=== PATIENT | male | born 1945 | race Caucasian/White ===

== ENCOUNTER 2017-11-10 15:36 | Observation (INO) ==
[2017-11-10] MEDS ORDERED: SALINE FLUSH 10ml SYRINGE IVF PRN (16:19)
--- NOTE | 2017-11-10 16:28 | Emergency Department Report ---
Fever HPI - General Chief Complaint: Medical Emergency Stated Complaint: influenza B pos Time Seen by Provider: 11/10/17 15:42 Source: patient, family Mode of arrival: ambulatory Limitations: no limitations - History of Present Illness HPI Narrative: Pt presents after being diagnosed with Influenza B 2 days ago with progressive weakness and uncontrolled nausea/vomiting. PT began having symptoms 6 days ago. Developed fever 2 days after and then vomiting and weakness 2 days after that. Pt has been seeing his PCP who has prescribed Zofran without relief. states pt has not been keeping anything down and she is now having to assist pt to the BR 2/2 increased weakness. Pt normally ambulates on his own without difficulty. He has had a productive cough. MD complaint: fever, weakness Onset (ago): day(s) Associated symptoms: cough, nausea, vomiting Relieving factors: nothing Treatments prior to arrival fever: other (zofran) - Related Data Home Medications Medication Instructions Recorded Confirmed Acetaminophen [Tylenol] 1,000 mg PO Q5H PRN 11/10/17 11/10/17 Aspirin [Adult Aspirin Regimen] 81 mg PO BID 11/10/17 11/10/17 Docusate Sodium [Colace] 100 mg PO BID 11/10/17 11/10/17 Doxazosin [Cardura] 4 mg PO HS 11/10/17 11/10/17 Finasteride [Proscar] 5 mg PO HS 11/10/17 11/10/17 Glucosamine/MSM/Chondroitin A 1 each PO BID 11/10/17 11/10/17 [Glucosamine Chondroit MSM Tab] Omega3/Dha/Epa/Fish Oil/Vit D3 1 each PO HS 11/10/17 11/10/17 [Fish Oil-Vit D3 Softgel] Ondansetron HCl [Zofran] 8 mg PO Q12HR PRN 11/10/17 11/10/17 Allergies Allergy/AdvReac Type Severity Reaction Status Date / Time morphine AdvReac Unknown JERKING Verified 11/10/17 16:27 MOVEMENTS Review of Systems All systems: reviewed and negative except as stated Constitutional: Reports: as per HPI Respiratory: Reports: as per HPI Gastrointestinal: Reports: as per HPI Musculoskeletal: Reports: as per HPI Endocrine: Reports: as per HPI PFSH Patient Stated Medical History Dysphagia Yes: OCCASIONALLY Other HEENT Yes: WEARS GLASSES Hx Benign Prostatic Yes Hyperplasia Physical Exam - Limitations Limitations: no limitations - General General appearance: alert, in no apparent distress - Normal Exams: Head:: Normocephalic without trauma Eyes:: Pupils are PERRLA w/ EOMI Neck:: Full range of motion, without adenopathy Chest/Respirations:: Clear all jasmine, with good airflow, and symmetry bilaterally Cardiovascular:: Regular rate and rhythm, without murmur or gallop, Pulses 2+ all extremities, capillary refill, <2 seconds all extremities Abdomen:: Bowel sounds positive, soft, non-tender, non-distended Musculoskeletal:: No tenderness, or deformity noted, good range of motion, all extremities Integumentary:: No rashes Neurological:: Patient is alert, and oriented, cranial nerves, motor/sensory/ cerebellar, exams w/o gross deficits, to observation Psychiatric:: Patient exhibits, appropriate attention, emotion and affect Course Vital Signs Temperature 99.1 F 11/10/17 15:45 Pulse Rate 57 L 11/10/17 15:45 Respiratory Rate 20 11/10/17 15:45 Blood Pressure 145/77 H 11/10/17 15:45 Pulse Oximetry 97 11/10/17 15:45 Temperature 99.1 F 11/10/17 15:45 Pulse Rate 57 L 11/10/17 15:45 Respiratory Rate 20 11/10/17 15:45 Blood Pressure 145/77 H 11/10/17 15:45 Pulse Oximetry 97 11/10/17 15:45 Fever - MDM Narrative Medical decision making narrative: Labs and X Ray reveal a pleural effusion. Pt continues to c/o weakness. He has received a liter of NS and 4 mg of Zofran. Findings discussed with Dr Chávez , pt to be admitted observation. Findings and plan discussed with pt and family who voice understanding. - Differential Diagnosis Likely: fever of unknown origin, gastroenteritis, viral infection, sepsis, influenza - Lab Data Attestation: I reviewed the patient's lab results. Result diagrams: 11/10/17 16:19 11/10/17 16:19 Lab Results 11/10/17 11/10/17 Range/Units 16:19 16:19 WBC 4.1 L (4.5-11.0) T/MM3 RBC 4.91 (4.50-5.90) M/MM3 Hgb 14.1 (13.5-17.5) GM/DL Hct 41.4 (41-53) % MCV 84.3 (80-100) UM3 MCH 28.7 (26-34) UUG MCHC 34.1 (31-37) GM/DL RDW Std Deviation 39.4 (36.9-50.2) FL Plt Count 125 L (130-400) T/MM3 MPV 10.5 (9.4-12.4) UM3 Immature Gran % (Auto) 0.2 (0.0-0.5) % Neut % (Auto) 67.0 H (33-66) % Lymph % (Auto) 24.7 (23-45) % Dundy % (Auto) 8.1 (0-9.0) % Eos % (Auto) 0.0 (0-4) % Baso % (Auto) 0.0 (0-2) % Neut # (Auto) 2.7 (1.8-7.7) T/MM3 Lymph # (Auto) 1.0 (1-4.8) T/MM3 Dundy # (Auto) 0.3 (0-0.8) T/MM3 Eos # (Auto) 0.0 (0-0.5) T/MM3 Baso # (Auto) 0.0 (0-0.2) T/MM3 Abs Immat Gran (auto) 0.01 (0.00-0.03) T/MM3 Turbidity < 20 (0-20) Sodium 138 (134-144) MEQ/L Potassium 3.7 (3.6-5) MEQ/L Chloride 100 (98-107) MEQ/L Carbon Dioxide 27 (22-30) MEQ/L Anion Gap 11 (5-15) MEQ/L BUN 16.0 (9-20) MG/DL Creatinine 0.7 L (0.8-1.5) MG/DL GFR Calculation 111 BUN/Creatinine Ratio 23 (6-26) RATIO Glucose 111 H (75-110) MG/DL Calculated Osmolality 268 (261-280) MOSM/KG Calcium 8.5 (8.4-10.2) MG/DL Total Bilirubin 0.70 (0.20-1.30) MG/DL Icterus Index < 2 (0-7) AST 41 (17-59) U/L ALT 37 (21-72) U/L Alkaline Phosphatase 66 (38-126) U/L Total Protein 7.1 (6.3-8.2) G/DL Albumin 3.8 (3.5-5.0) G/DL Globulin 3.3 (2.4-3.6) G/DL Albumin/Globulin Ratio 1.2 (1.1-2.2) RATIO Specimen Hemolysis < 15 (0-25) - Radiology Data Attestation: I reviewed the patient's radiology results. (read per Dr Rose reveals pleural effusion) Disposition Clinical Impression: Influenza, Weakness Vomiting Qualifiers: Vomiting type: unspecified Vomiting Intractability: non-intractable Nausea presence: with nausea Qualified Code(s): R11.2 - Nausea with vomiting, unspecified Condition: Improved Prescriptions: No Action Omega3/Dha/Epa/Fish Oil/Vit D3 [Fish Oil-Vit D3 Softgel] 1 each PO HS Aspirin [Adult Aspirin Regimen] 81 mg PO BID Glucosamine/MSM/Chondroitin A [Glucosamine Chondroit MSM Tab] 1 each PO BID Docusate Sodium [Colace] 100 mg PO BID Acetaminophen [Tylenol] 1,000 mg PO Q5H PRN PRN Reason: Pain /Fever Finasteride [Proscar] 5 mg PO HS Doxazosin [Cardura] 4 mg PO HS Ondansetron HCl [Zofran] 8 mg PO Q12HR PRN PRN Reason: Nausea &/Or Vomiting Referrals: Preet Leonard MD [Family Provider] - Time of Disposition: 17:59 - Seen By: midlevel
[2017-11-10] MEDS: NS 1,000 ML IV SCH ×3 (16:33→19:58)
--- NOTE | 2017-11-10 18:43 | History & Physical Report ---
History of Present Illness Date: 11/10/17 Chief complaint: dizziness, lightheadedness, dyspnea, chest pain HPI: Mr Tobias is a pleasant 71-year-old gentleman who has been under the primary care of Dr. Leonard. Patient has been sick for approximately 8-9 days. He was evaluated on Thursday 11/[address] Leonard and found to have influenza B. He was not started on Tamiflu due to the length of his symptoms, however, was initiated on Zofran for his ongoing vomiting. Today, his weakness has progressed to the point that he is unable to even stand up without severe dizziness, lightheadedness and continued nausea and vomiting. Patient has not been able to eat any solid foods for the past 6 days. Is having generalized abdominal pain that radiates up into his chest. Reports his dyspnea is severe with even moving around in the bed. He is having to prop himself forward in a tripod-like position to become more comfortable. Today in the emergency room, laboratory studies were obtained. WBC was found to be slightly low at 4.1, hemoglobin stable 14.1, platelet count low at 125. Chemistry panel was unremarkable. Rest x-ray was obtained, however has not yet been read by radiolgist. Was given a 1 liter of IV fluids as well as Zofran, however, continues to be significantly weak and lightheaded. Due to the severity of his illness. The hospitalist services were contacted and accepted patient for outpatient observation for further evaluation and workup. reports that patient is rarely ill as he is a "stubborn swartz". He did see Dr Martinez in 2008 and at that time had a negative stress test. Patient indicates that he has difficulty with esophageal type discomfort and he had to have this dilated approximately 25 or 30 years ago. Since that time he has used omeprazole and that has helped him. However, at times he feels like he could get foods stuck in his esophagus. He also reports he is unable to drink any kind of carbonated beverages including pop or beer. He states that if he does drink either substance. He has severe chest pain that is unbearable. Review of Systems All systems PM: 10-point ROS was reviewed, no additional remarkable complaints except - Constitutional Constitutional: Present: anorexia, fatigue, fever(s), headache(s), lethargy, malaise, weakness - Cardiovascular Cardiovascular: Present: chest pain - Respiratory Respiratory: Present: cough, dyspnea - Gastrointestinal Gastrointestinal: Present: nausea, vomiting - Musculoskeletal Musculoskeletal: Present: myalgias - Neurological Neurological: Present: dizziness Past Medical History Esophageal stricture GERD BPH History of viral hepatitis-2003 Surgical History: Esophageal dilatation. Inguinal hernia repair as a child Family History Updates: Father at age 94, did have known heart disease and diabetes. Mother at age 89 from congestive heart failure. 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 Leonard Back Maker Dr. Martinez Medications Home Medications Medication Instructions Recorded Confirmed Type Acetaminophen [Tylenol] 1,000 mg PO Q5H PRN 11/10/17 11/10/17 History Aspirin [Adult Aspirin Regimen] 81 mg PO BID 11/10/17 11/10/17 History Docusate Sodium [Colace] 100 mg PO BID 11/10/17 11/10/17 History Doxazosin [Cardura] 4 mg PO HS 11/10/17 11/10/17 History Finasteride [Proscar] 5 mg PO HS 11/10/17 11/10/17 History Glucosamine/MSM/Chondroitin A 1 each PO BID 11/10/17 11/10/17 History [Glucosamine Chondroit MSM Tab] Omega3/Dha/Epa/Fish Oil/Vit D3 1 each PO HS 11/10/17 11/10/17 History [Fish Oil-Vit D3 Softgel] Ondansetron HCl [Zofran] 8 mg PO Q12HR PRN 11/10/17 11/10/17 History Allergies Allergy/AdvReac Type Severity Reaction Status Date / Time morphine AdvReac Unknown JERKING Verified 11/10/17 16:27 MOVEMENTS Exam Vital Signs: Temperature 98.6 F 11/10/17 18:34 Pulse Rate 60 11/10/17 18:34 Respiratory Rate 20 11/10/17 18:34 Blood Pressure 144/77 H 11/10/17 18:34 Pulse Oximetry 95 11/10/17 18:34 - Constitutional Present: mild distress, well nourished, well developed - Routine HEENT Exam Eye: Present: EOMI ENT: Present: mucous membranes dry, dentition normal - Routine Respiratory Exam Present: CTA bilaterally. Absent: wheezes - Routine Cardiovascular Exam Present: RRR, S1, S2. Absent: murmur - Routine Abdominal Exam Present: soft, normoactive bowel sounds, tenderness (diffuse), non distended - Routine Extremities Exam Present: full ROM, normal capillary refill - Routine Back/Spine/Pelvis Exam Back/Spine: Present: full ROM - Routine Skin Exam Present: intact, dry, warm - Routine Neurological Exam Present: alert, oriented X3, CN II-XII intact, moving all extremities - Routine Psychiatric Exam Present: normal affect, cooperative Results - Labs CBC & Chem 7: 11/10/17 16:19 11/10/17 16:19 Assessment and Plan (1) Influenza Current visit: Yes Status: Acute Assessment and Plan: Impression Influenza B Vomiting, concern for dehydration Weakness- Acute Dizziness- Acute Chest pain- Intermittent Dyspnea- Intermittent BPH GERD Plan Admit patient outpatient observation under the care of Dr. Chávez for further evaluation and treatment. Overall, patient does appear weak and ill. He has not been able to take in any oral food and minimal fluids for 6 days. We will continue with aggressive hydration overnight. Zofran and Reglan available as needed for nausea. Recommended only trying clear liquids initially until nausea and vomiting has improved. Will monitor patient on cardiac telemetry and obtain serial troponins as well as a EKG- Given reported chest pain with severe dyspnea. Did speak with Dr. Martinez whom will see patient in consultation. Concerned about the severity of his symptoms with onset of severe dyspnea and tripod positioning. We will obtain an echocardiogram. for further cardiac evaluation. Patient is more medically stable will consult PT and OT to evaluate his weakness SCDs to bilateral lower extremity for DVT prophylaxis Will discuss further orders and plan of care with attending, Dr Chávez At time of discharge medical care will return to patient's primary care provider , Dr Aisha Chávez Assessment as above with: Leukopenia/Thrombocytopenia DVT Prophylaxis: SCD's GI Prophylaxis: Protonix Resuscitation Status: Full Code - Time spent with patient Time with patient PN: 35 minutes - Physician Narrative Physician: Primitivo Chávez MD Narrative: Date: 11/10/17 Time: 2015 Have independently interviewed and examined pt. Chart reviewed. Case discussed with ED provider and my APPLICATION SUPPORT TECHNICIAN. Care plan developed with my supervision; agree with above. Patient presents to ED secondary to intractable nausea vomiting. Has been sick with flu like symptoms for the past 7-10 days. Symptoms progressively increasing. While he notes some SOA/cough/congestion, nausea and decreased appetite/oral intake much more problematic. Currently unable to keep liquids in. Any intake causes vomiting. Initially using NyQuil for symptom relief, but unable to keep this down. Not able to use oral Zofran. Urine output with significant decrease today. No diarrhea-had been having normal stools until 3 days ago. Much more weak and unsteady. Becomes very dizzy/lightheaded with positional changes. Fevers at home. Presents to ED for evaluation. Surprisingly , Renal status and electrolytes normal. Despite IVF given in ED, still symptomatic. Placed in OBS status for further evaluation and treatment. CV: regular Lungs: decreased breath sounds with upper airway noises AB: soft nt /nd BS very decreased MSE: awake alert appropriate Plan: OBS admission for hydration therapy. Control nausea. Protonix IV for GI protection. Will not initiate Tamiflu as too late in course of illness for treatment to be of benefit. Monitor lab. Hospital Course Summary Disclaimer: The visit summary below is not to be considered part of the above Progress Note.
[2017-11-10] MEDS ORDERED: NS 1,000 ML IV SCH (19:19)
[2017-11-10] MEDS ORDERED: FentaNYL 100 MCG/2 ML INJECTION IVP PRN (19:19)
[2017-11-10] MEDS ORDERED: ACETAMINOPHEN 500 MG TABLET PO PRN (19:19)
[2017-11-10] MEDS ORDERED: ONDANSETRON 4 MG/2 ML INJECTION IVP PRN (19:19)
[2017-11-10] MEDS: PANTOPRAZOLE 40 MG INJECTION IVP SCH (19:59)
[2017-11-10] MEDS: METOCLOPRAMIDE 10mg/2ml INJECTION IVP SCH (20:19)
[2017-11-10] MEDS: DOCUSATE SODIUM 100 MG CAPSULE PO SCH (20:24)
[2017-11-10] MEDS: ASPIRIN *EC* 81 MG TABLET PO SCH (20:24)
[2017-11-10] MEDS ORDERED: PROMETHAZINE/CODEINE ORAL LIQUID 5ml PO PRN (20:54)
[2017-11-10] MEDS ORDERED: DOXAZOSIN 4 MG TABLET PO SCH (21:00)
[2017-11-10] MEDS ORDERED: FINASTERIDE 5 MG TABLET PO SCH (21:00)
[2017-11-10] MEDS ORDERED: ALBUTEROL/IPRATROPIUM 2.5mg-0.5mg/3ml NEB AEROSOL SCH (21:00)
[2017-11-11] MEDS: METOCLOPRAMIDE 10mg/2ml INJECTION IVP SCH ×3 (02:35→15:36)
[2017-11-11] MEDS: NS 1,000 ML IV SCH ×2 (05:50→16:11)
[2017-11-11] MEDS: ALBUTEROL/IPRATROPIUM 2.5mg-0.5mg/3ml NEB AEROSOL SCH ×3 (06:39→15:41)
--- NOTE | 2017-11-11 08:10 | XRay Report ---
INDICATION: flu > 1 week PROCEDURE: CHEST 2-VIEWS UPRIGHT (PA & LAT) Encounter: Initial COMPARISON: December 17, 2008 FINDINGS: The lungs are clear without evidence of focal abnormal airspace opacity. Suggestion of trace pleural effusions on the lateral view. No pneumothorax. The heart size, mediastinal contours and pulmonary vascularity are within normal limits. There is no significant skeletal abnormality. IMPRESSION: Trace pleural effusions. .
[2017-11-11] MEDS: DOCUSATE SODIUM 100 MG CAPSULE PO SCH (09:44)
[2017-11-11] MEDS: PANTOPRAZOLE 40 MG INJECTION IVP SCH (09:44)
[2017-11-11] MEDS: ASPIRIN *EC* 81 MG TABLET PO SCH (09:44)
--- NOTE | 2017-11-11 12:18 | Progress Note ---
- Date 11/11/17 Subjective: F/U: Influenza, N/V, Dehydration Feeling much better this morning. Nausea decreased and appetite improving. Would like to try regular foods (broth not sounding good). Breathing well, but still with cough. Walked with PT this morning-not as dizzy and unsteady. Feels strength returning. Urine still dark, but urinating well. Had bowel movement. Objective Vital signs: Temperature 97.0 F 11/11/17 11:49 Pulse Rate 88 11/11/17 11:49 Respiratory Rate 13 11/11/17 11:49 Blood Pressure 138/67 11/11/17 11:49 Pulse Oximetry 94 11/11/17 11:49 Height/Weight/BMI: Height 1.85 m Weight 98.3 kg Body Mass Index 28.3 - Constitutional Present: well nourished, well developed, average body habitus, cooperative - Routine HEENT Exam Head: Present: normocephalic, atraumatic Eye: Present: EOMI, PERRL ENT: Present: mucous membranes moist - Routine Respiratory Exam Present: decreased breath sounds. Absent: rales, respiratory distress, rhonchi , stridor, wheezes, crackles - Routine Cardiovascular Exam Present: RRR, no murmur - Routine Abdominal Exam Present: soft, normoactive bowel sounds, non distended, non tender. Absent: guarding - Routine Extremities Exam Present: no edema, pulses intact. Absent: cyanosis, clubbing Comments: SCD in place - Routine Musculoskeletal Exam Musculoskeletal: Present: no clubbing or cyanosis, normal strength - Routine Skin Exam Present: intact, dry, warm - Routine Neurological Exam Present: alert, oriented X3, CN II-XII intact, moving all extremities, vision grossly intact, hearing grossly intact, normal speech. Absent: motor deficit, altered mental status - Routine Psychiatric Exam Present: normal affect, normal thought process, cooperative, good insight Results - Labs CBC & Chem 7: 11/11/17 02:59 11/11/17 02:59 Assessment and Plan (1) Influenza Current visit: Yes Status: Acute Assessment and Plan: Impression Influenza B Nausea/Vomiting - improved Weakness- Acute Dizziness- Acute Chest pain- Intermittent Dyspnea- Intermittent Leukopenia/Thrombocytopenia BPH GERD Plan Continue with IVF for hydration. Will advance diet to regular as patient feel like real food intake - advised caution with oral intake. Did well with therapy-encourage continued activities to help improve functional status. Will have Tesselan Perles available for cough - likely patient will have good success with the Ny-Quil he was using at home if can keep oral down. Troponin negative - no evidence of AMI. Dr Martinez to see patient. Continue with supportive care. Hope for discharge today IF patient can keep oral intake in well. 1700 Reassessed this evening Doing well. Tolerating oral intake-did take lunch easy (ate about 1/2 his portion) but kept in. Did feel if would have eaten more would developed nausea. Urine output improved - no having dark urine. Breathing well. Cough controlled. Maintaining saturation well on RA. Evaluated by Dr Martinez - ECHO normal. Recommends outpatient follow up in 3-4 weeks. Did discuss patient's reflux - encourage routine use of omeprazole for at least 1 month to control symptoms. May use Tums as needed. With clinic improvement, will discharge to home. [place] diet, plenty of fluids. Activities as tolerated. Omeprazole 20mg daily for 1 month, Tums prn. Tessalon Perle prn cough - my use OTC Ny-Quil or Robitussin DM or Mucinex DM to help cough. F/U with Dr Leonard in 1 week for medical reevaluation. Recommend rechecking CBC secondary to leukopenia/thrombocytopenia - likely secondary to influenza. F/U with Dr Martinez in 3-4 week. See orders for details. Case discussed with CM, Dr Martinez, patient and his . Time spent with patient care and discharge greater than 30 minutes. DVT Prophylaxis: SCD's Resuscitation Status: Full Code - Time spent with patient Time with patient PN: 25 minutes - Physician Narrative Physician: Primitivo Chávez MD Narrative: Date: 11/11/17 Time: 1215 Hospital Course Summary Disclaimer: The visit summary below is not to be considered part of the above Progress Note. Hospital Course: 11/10/17 Admission - OBS Admit patient outpatient observation under the care of Dr. Chávez for further evaluation and treatment. Overall, patient does appear weak and ill. He has not been able to take in any oral food and minimal fluids for 6 days. We will continue with aggressive hydration overnight. Zofran and Reglan available as needed for nausea. Recommended only trying clear liquids initially until nausea and vomiting has improved. Will monitor patient on cardiac telemetry and obtain serial troponins as well as a EKG- Given reported chest pain with severe dyspnea. Did speak with Dr. Martinez whom will see patient in consultation. Concerned about the severity of his symptoms with onset of severe dyspnea and tripod positioning. We will obtain an echocardiogram. for further cardiac evaluation. Patient is more medically stable will consult PT and OT to evaluate his weakness. SCDs to bilateral lower extremity for DVT prophylaxis. At time of discharge medical care will return to patient's primary care provider , Dr Leonard. 11/11/17 Continue with IVF for hydration. Will advance diet to regular as patient feel like real food intake - advised caution with oral intake. Did well with therapy-encourage continued activities to help improve functional status. Will have Tesselan Perles available for cough - likely patient will have good success with the Ny-Quil he was using at home if can keep oral down. Troponin negative - no evidence of AMI. Dr Martinez to see patient. Continue with supportive care. Hope for discharge today IF patient can keep oral intake in well. 1700 Reassessed this evening Doing well. Tolerating oral intake-did take lunch easy (ate about 1/2 his portion) but kept in. Did feel if would have eaten more would developed nausea. Urine output improved - no having dark urine. Breathing well. Cough controlled. Maintaining saturation well on RA. Evaluated by Dr Martinez - ECHO normal. Recommends outpatient follow up in 3-4 weeks. Did discuss patient's reflux - encourage routine use of omeprazole for at least 1 month to control symptoms. May use Tums as needed. With clinic improvement, will discharge to home. [place] diet, plenty of fluids. Activities as tolerated. Omeprazole 20mg daily for 1 month, Tums prn. Tessalon Perle prn cough - my use OTC Ny-Quil or Robitussin DM or Mucinex DM to help cough. F/U with Dr Leonard in 1 week for medical reevaluation. Recommend rechecking CBC secondary to leukopenia/thrombocytopenia - likely secondary to influenza. F/U with Dr Martinez in 3-4 week. See orders for details.
[2017-11-11 14:48] VITALS: BMI 28.5
[2017-11-11] MEDS ORDERED: BENZONATATE 200 MG CAPSULE PO PRN (15:29)
--- NOTE | 2017-11-11 17:21 | Discharge Summary ---
Discharge Information Date of admission: 11/10/17 17:52 Anticipated date of discharge: 11/11/17 Attending Physician: Primitivo Chávez MD Primary care physician: Preet Leonard MD Consults: Physician Consult: Cora Martinez Reason For Exam: chest pain, dyspnea - Discharge Diagnosis (1) Influenza Status: Acute Discharge diagnosis Influenza B Associated conditions and complications Nausea/Vomiting - improved Weakness - Acute, improved Dizziness - Acute, improved Chest pain - Intermittent - no evidence of AMI Dyspnea - Intermittent Leukopenia/Thrombocytopenia (POA) - suspect secondary to influenza BPH GERD - Procedures Procedures: ECHO - preliminary results normal; full report pending at discharge. - Laboratory Labs: Admit Lab 11/10/17 16:19 WBC 4.1 L Hgb 14.1 Hct 41.4 MCV 84.3 Plt Count 125 L Neut % (Auto) 67.0 H Lymph % (Auto) 24.7 [place] % (Auto) 8.1 Admit Lab 11/10/17 16:19 Sodium 138 Potassium 3.7 Chloride 100 Carbon Dioxide 27 Anion Gap 11 BUN 16.0 Creatinine 0.7 L GFR Calculation 111 BUN/Creatinine Ratio 23 Glucose 111 H Calculated Osmolality 268 Calcium 8.5 Total Bilirubin 0.70 AST 41 ALT 37 Alkaline Phosphatase 66 Total Protein 7.1 Albumin 3.8 Globulin 3.3 Albumin/Globulin Ratio 1.2 11/11/17 02:59 11/11/17 02:59 - Radiology Radiology: Date of Exam: 11/10/17 PROCEDURE: CHEST 2-VIEWS UPRIGHT (PA & LAT) FINDINGS: The lungs are clear without evidence of focal abnormal airspace opacity. Suggestion of trace pleural effusions on the lateral view. No pneumothorax. The heart size, mediastinal contours and pulmonary vascularity are within normal limits. There is no significant skeletal abnormality. IMPRESSION: Trace pleural effusions. History of Present Illness HPI: Mr Tobias is a pleasant 71-year-old gentleman who has been under the primary care of Dr. Leonard. Patient has been sick for approximately 8-9 days. He was evaluated on Thursday 11/[address] Leonard and found to have influenza B. He was not started on Tamiflu due to the length of his symptoms, however, was initiated on Zofran for his ongoing vomiting. Today, his weakness has progressed to the point that he is unable to even stand up without severe dizziness, lightheadedness and continued nausea and vomiting. Patient has not been able to eat any solid foods for the past 6 days. Is having generalized abdominal pain that radiates up into his chest. Reports his dyspnea is severe with even moving around in the bed. He is having to prop himself forward in a tripod-like position to become more comfortable. Today in the emergency room, laboratory studies were obtained. WBC was found to be slightly low at 4.1, hemoglobin stable 14.1, platelet count low at 125. Chemistry panel was unremarkable. Rest x-ray was obtained, however has not yet been read by radiolgist. Was given a 1 liter of IV fluids as well as Zofran, however, continues to be significantly weak and lightheaded. Due to the severity of his illness. The hospitalist services were contacted and accepted patient for outpatient observation for further evaluation and workup. reports that patient is rarely ill as he is a "stubborn swartz". He did see Dr Martinez in 2008 and at that time had a negative stress test. Patient indicates that he has difficulty with esophageal type discomfort and he had to have this dilated approximately 25 or 30 years ago. Since that time he has used omeprazole and that has helped him. However, at times he feels like he could get foods stuck in his esophagus. He also reports he is unable to drink any kind of carbonated beverages including pop or beer. He states that if he does drink either substance. He has severe chest pain that is unbearable. For complete details of the H&P refer to that document. Objective Vital signs: Temperature 97.0 F 11/11/17 11:49 Pulse Rate 88 11/11/17 11:49 Respiratory Rate 16 11/11/17 15:41 Blood Pressure 138/67 11/11/17 11:49 Pulse Oximetry 97 11/11/17 15:41 Height/Weight/BMI: Height 1.85 m Weight 98.3 kg Body Mass Index 28.5 Hospital Course This is a general summary of the patient's hospital course. For more details refer to the complete medical record. Hospital course: 11/10/17 Admission - OBS Admit patient outpatient observation under the care of Dr. Chávez for further evaluation and treatment. Overall, patient does appear weak and ill. He has not been able to take in any oral food and minimal fluids for 6 days. We will continue with aggressive hydration overnight. Zofran and Reglan available as needed for nausea. Recommended only trying clear liquids initially until nausea and vomiting has improved. Will monitor patient on cardiac telemetry and obtain serial troponins as well as a EKG- Given reported chest pain with severe dyspnea. Did speak with Dr. Martinez whom will see patient in consultation. Concerned about the severity of his symptoms with onset of severe dyspnea and tripod positioning. We will obtain an echocardiogram. for further cardiac evaluation. Patient is more medically stable will consult PT and OT to evaluate his weakness. SCDs to bilateral lower extremity for DVT prophylaxis. At time of discharge medical care will return to patient's primary care provider , Dr Leonard. 11/11/17 Continue with IVF for hydration. Will advance diet to regular as patient feel like real food intake - advised caution with oral intake. Did well with therapy-encourage continued activities to help improve functional status. Will have Tesselan Perles available for cough - likely patient will have good success with the Ny-Quil he was using at home if can keep oral down. Troponin negative - no evidence of AMI. Dr Martinez to see patient. Continue with supportive care. Hope for discharge today IF patient can keep oral intake in well. 1700 Reassessed this evening Doing well. Tolerating oral intake-did take lunch easy (ate about 1/2 his portion) but kept in. Did feel if would have eaten more would developed nausea. Urine output improved - not having dark urine. Breathing well. Cough controlled. Maintaining saturation well on RA. Evaluated by Dr Martinez - ECHO normal. Recommends outpatient follow up in 3-4 weeks. Did discuss patient's reflux - encourage routine use of omeprazole for at least 1 month to control symptoms. May use Tums as needed. With clinic improvement, will discharge to home. [place] diet, plenty of fluids. Activities as tolerated. Omeprazole 20mg daily for 1 month, Tums prn. Tessalon Perle prn cough - my use OTC Ny-Quil or Robitussin DM or Mucinex DM to help cough. F/U with Dr Leonard in 1 week for medical reevaluation. Recommend rechecking CBC secondary to leukopenia/thrombocytopenia - likely secondary to influenza. F/U with Dr Martinez in 3-4 week. See orders for details. Time spent with patient: discharge greater than 30 minutes Resuscitation Status: Full Code Discharge Plan - Discharge Disposition Discharge Date: 11/11/17 Disposition: 01 Discharged Home, Self-Care *Condition: Improved Reason For Visit (Visit label in EMR): Weakness, nausea / vomiting - Discharge Medications *Discharge Medications: New Benzonatate [Tessalon Perles] 200 mg PO TID PRN #20 cap PRN Reason: Cough Omeprazole 20 mg PO ACB #30 tab Continue Omega3/Dha/Epa/Fish Oil/Vit D3 [Fish Oil-Vit D3 Softgel] 1 each PO HS Aspirin [Adult Aspirin Regimen] 81 mg PO BID Glucosamine/MSM/Chondroitin A [Glucosamine Chondroit MSM Tab] 1 each PO BID Docusate Sodium [Colace] 100 mg PO BID Acetaminophen [Tylenol] 1,000 mg PO Q5H PRN PRN Reason: Pain /Fever Finasteride [Proscar] 5 mg PO HS Doxazosin [Cardura] 4 mg PO HS Ondansetron HCl [Zofran] 8 mg PO Q12HR PRN PRN Reason: Nausea &/Or Vomiting - Discharge Packet/Instructions *Diet: [place] diet, plenty of fluids. Advance diet as able *Activity: As tolerated *Pain Management/Treatment: Tylenol as needed for pain. *Wound Care: N/A Additional Instructions: Use omeprazole (Prilosec) 20mg daily before breakfast for 4 weeks to stop acid. May use Tums as needed. Okay to use OTC Ny-Quil or Robitussin DM or Mucinex DM to help decrease cough. *Expected Signs/Symptoms: Decreasing nausea and improvement of appetite. Improvement of breathing and decreasing cough. *Notify Physician if: Temp >100.4. Intractable nausea or vomiting. *During Business Hours Contact: Dr Leonard *After Business Hours Contact: [place] [facility] [place] Leonard or his covering provider contacted. *Pending Lab/Results: Follow up w/Provider (Full ECHO results pending. Preliminary report normal) - Referrals/Follow Up *Referrals/Follow Up: Cora Martinez MD [Physician] - (Cardiac follow up in 3-4 weeks. ) Preet Leonard MD [Family Provider] - 1 Week (Hospital follow up for N/V and influenza. GERD treatment increased to Routine Omeprazole. ) - Patient Handouts - Dismissal Complete Discharge Instructions are:: Complete Physician Narrative - Narrative Physician: Primitivo Chávez MD Attestation Narrative: Date: 11/11/17 Time: 1717 I have independently interviewed and examined patient prior to discharge. See my progress note from today for details. Medically stable for discharge to home.
[2017-11-11 17:29] VITALS: BP 139/69; PULSE 63; RESP 20; TEMP 98.5; O2SAT 96
--- NOTE | 2017-11-11 17:42 | Cardiology Consult Note ---
History of Present Illness Consult reason: chest pain History of present illness: Mr. Raji Pennington is a pleasant 71 year old male who presented to ER yesterday d/t dizziness, lightheadedness and chest discomfort. Pt has has ongoing illness since the Oct - he has been unable to eat or drink anything since then. Pt's PCP is Dr. Leonard and saw him on the due to continued dizziness and tested positive for influenza B. He was not given Tamiflu d/t length of symptoms, but was given Zofran for nausea/vomiting. Pt said in ER he had chest pain like heartburn - it was "tight" and thought it was gas pressure. It lasted 1-2 hours and was constant. Pt complained it was dull pain that was substernal and under bilateral breasts in location - pt made fist with left hand when showing location. Pt denied radiation and pain to jaw, neck or arm. Pt was unsure what made the pain go away in the ER - thought maybe the IV fluids. No positional changes made the chest pain worse. Pt had same pain 2 nights ago and took TUMS and the pain went away. Pt said eating or drinking made the pain worse. Pt had CHENTE in 2008 with me - had to stop due to being tired. Pt has also had cough since the onset of illness on the . The cough was worse when laying on back. The cough was better when laying in prone position or standing up. Pt has had esophageal problems in the past - had to get esophagus ballooned years ago. Pt has had heartburn issues in the past also - used to take Prilosec which helped but is no longer taking it since he said he heard that can cause liver problems. Pt currently denies chest pain, palpitations, dyspnea, nausea/vomiting. Pt continues to have cough with clear sputum production. Pt says he is feeling better this morning. Pt denies chest pain, palpitations, dyspnea, nausea, vomiting. Pt denies edema, PND, orthopnea. I was unable to reproduce chest pain upon palpation. Pt denies worsening of pain with cough. EKG showed SR. Echo and CXR were normal. Review of Systems All systems PM: 10-point ROS was reviewed, no additional remarkable complaints except PFSH Patient Stated Medical History Dysphagia Yes: OCCASIONALLY Other HEENT Yes: WEARS GLASSES Hx Benign Prostatic Yes Hyperplasia Surgical History: Esophageal dilatation. Inguinal hernia repair as a child - Social History Smoking status: Never smoker Substance use type: does not use Alcohol intake frequency: does not drink Current residence: Apartment/Private Home Medications Home Medications Medication Instructions Recorded Confirmed Type Acetaminophen [Tylenol] 1,000 mg PO Q5H PRN 11/10/17 11/12/17 History Aspirin [Adult Aspirin Regimen] 81 mg PO BID 11/10/17 11/12/17 History Docusate Sodium [Colace] 100 mg PO BID 11/10/17 11/12/17 History Doxazosin [Cardura] 4 mg PO HS 11/10/17 11/12/17 History Finasteride [Proscar] 5 mg PO HS 11/10/17 11/12/17 History Glucosamine/MSM/Chondroitin A 1 tab PO BID 11/10/17 11/12/17 History [Glucosamine Chondroit MSM Tab] Omega3/Dha/Epa/Fish Oil/Vit D3 1 each PO HS 11/10/17 11/12/17 History [Fish Oil-Vit D3 Softgel] Ondansetron HCl [Zofran] 8 mg PO Q12HR PRN 11/10/17 11/12/17 History Allergies Allergy/AdvReac Type Severity Reaction Status Date / Time benzonatate Allergy Rash Verified 11/12/17 15:59 morphine AdvReac Unknown JERKING Verified 11/12/17 15:37 MOVEMENTS Exam Vital signs: Temperature 98.5 F 11/11/17 17:27 Pulse Rate 63 11/11/17 17:27 Respiratory Rate 20 11/11/17 17:27 Blood Pressure 139/69 11/11/17 17:27 Pulse Oximetry 96 11/11/17 17:27 - Constitutional no acute distress, well developed, cooperative - Routine HEENT Exam Head: Present: normocephalic, atraumatic Eye: Present: EOMI, PERRL ENT: Present: mucous membranes moist Nose: moist mucous membranes - Routine Neck Exam Present: supple. Absent: carotid bruit - Routine Chest/Breast/Axilla Exam Chest wall: Absent: tenderness (unable to reproduce chest pain upon palpation) - Routine Respiratory Exam Present: CTA bilaterally, rhonchi (few scattered) - Routine Cardiovascular Exam Present: RRR, no murmur. Absent: gallop, rubs - Routine Abdominal Exam Present: soft, normoactive bowel sounds, non tender. Absent: organomegaly, mass - Routine Extremities Exam Present: no edema, pulses intact, normal capillary refill. Absent: cyanosis, clubbing - Routine Skin Exam Present: intact, dry. Absent: cyanosis, erythema - Routine Neurological Exam Present: alert, oriented X3, CN II-XII intact, moving all extremities, vision grossly intact, normal speech. Absent: motor deficit, hearing grossly intact ( [place]), facial asymmetry - Routine Psychiatric Exam Present: normal affect, cooperative Results 11/11/17 02:59 11/11/17 02:59 Cardiac Enzymes 11/10/17 11/11/17 11/11/17 Range/Units 19:25 02:59 11:45 Troponin I < 0.012 < 0.012 < 0.012 (0-0.12) ng/ml CBC 11/11/17 Range/Units 02:59 WBC 3.5 L (4.5-11.0) T/MM3 RBC 4.31 L (4.50-5.90) M/MM3 Hgb 12.3 L D (13.5-17.5) GM/DL Hct 36.8 L D (41-53) % Plt Count 107 L (130-400) T/MM3 Neut # (Auto) 2.0 (1.8-7.7) T/MM3 Lymph # (Auto) 1.2 (1-4.8) T/MM3 [place] # (Auto) 0.3 (0-0.8) T/MM3 Eos # (Auto) 0.0 (0-0.5) T/MM3 Baso # (Auto) 0.0 (0-0.2) T/MM3 Comprehensive Metabolic Panel 11/11/17 Range/Units 02:59 Sodium 138 (134-144) MEQ/L Potassium 3.5 L (3.6-5) MEQ/L Chloride 101 (98-107) MEQ/L Carbon Dioxide 29 (22-30) MEQ/L BUN 13.0 (9-20) MG/DL Creatinine 0.7 L (0.8-1.5) MG/DL Glucose 101 (75-110) MG/DL Calcium 7.7 L D (8.4-10.2) MG/DL Intake and Output 11/11/17 11/11/17 11/11/17 06:59 14:59 22:59 Intake Total 1186.667 / 1186.667 90 / 90 1000 / 1000 Output Total 450 / 450 200 / 200 Balance 736.667 / 736.667 -110 / -110 1000 / 1000 Intake: IV 986.667 / 390.666 3508 / 1000 Ns 1,000 ml @ 100 mls/hr IV . 986.667 / 697.079 7853 / 1000 Q10H MAI Rx#:[id number] Oral 200 / 200 90 / 90 Output: Urine 450 / 450 200 / 200 Other: Urine Appearance Clear Clear Urine Color Light [place] Dark Yellow Urine Odor Strong Normal Weight 98.3 kg Patient Weight 11/12/17 06:59 Weight 98.3 kg - Imaging and Cardiology Echo: report reviewed, image reviewed EKG results: report reviewed, image reviewed - EKG Interpretation EKG: sinus rhythm, no acute changes Assessment and Plan - Assessment and Plan Atypical chest pain, most likely secondary to GERD. No evidence of acute coronary syndrome. Cardiac etiology cannot be excluded although less likely. Pt offered pharmacologic nuclear test since unable to do TM, but declined. Pt agrees to F/U in clinic in 3-4 weeks. Hospital Course Summary Disclaimer: The visit summary below is not to be considered part of the above Progress Note. Hospital Course: 11/10/17 Admission - OBS Admit patient outpatient observation under the care of Dr. Chávez for further evaluation and treatment. Overall, patient does appear weak and ill. He has not been able to take in any oral food and minimal fluids for 6 days. We will continue with aggressive hydration overnight. Zofran and Reglan available as needed for nausea. Recommended only trying clear liquids initially until nausea and vomiting has improved. Will monitor patient on cardiac telemetry and obtain serial troponins as well as a EKG- Given reported chest pain with severe dyspnea. Did speak with Dr. Martinez whom will see patient in consultation. Concerned about the severity of his symptoms with onset of severe dyspnea and tripod positioning. We will obtain an echocardiogram. for further cardiac evaluation. Patient is more medically stable will consult PT and OT to evaluate his weakness. SCDs to bilateral lower extremity for DVT prophylaxis. At time of discharge medical care will return to patient's primary care provider , Dr Leonard. 11/11/17 Continue with IVF for hydration. Will advance diet to regular as patient feel like real food intake - advised caution with oral intake. Did well with therapy-encourage continued activities to help improve functional status. Will have Tesselan Perles available for cough - likely patient will have good success with the Ny-Quil he was using at home if can keep oral down. Troponin negative - no evidence of AMI. Dr Martinez to see patient. Continue with supportive care. Hope for discharge today IF patient can keep oral intake in well. 1700 Reassessed this evening Doing well. Tolerating oral intake-did take lunch easy (ate about 1/2 his portion) but kept in. Did feel if would have eaten more would developed nausea. Urine output improved - not having dark urine. Breathing well. Cough controlled. Maintaining saturation well on RA. Evaluated by Dr Martinez - ECHO normal. Recommends outpatient follow up in 3-4 weeks. Did discuss patient's reflux - encourage routine use of omeprazole for at least 1 month to control symptoms. May use Tums as needed. With clinic improvement, will discharge to home. [place] diet, plenty of fluids. Activities as tolerated. Omeprazole 20mg daily for 1 month, Tums prn. Tessalon Perle prn cough - my use OTC Ny-Quil or Robitussin DM or Mucinex DM to help cough. F/U with Dr Leonard in 1 week for medical reevaluation. Recommend rechecking CBC secondary to leukopenia/thrombocytopenia - likely secondary to influenza. F/U with Dr Martinez in 3-4 week. See orders for details.
--- NOTE | 2017-11-12 14:08 | Echocardiogram ---
DATE OF STUDY 11/11/2017 INDICATIONS Chest pain, shortness of breath. TECHNICAL QUALITY Technically good 2D, M-mode, Doppler echocardiographic images were submitted for interpretation. FINDINGS 1. CARDIAC CHAMBERS: All cardiac chambers normal in size. Aortic root diameter is normal. Right-sided cardiac chambers are not dilated. RV size and contractility appear normal. The left ventricle, however, is slightly enlarged, measuring 6 cm. The left atrium measured 3.8 cm. 2. LEFT VENTRICLE: Wall thickness is normal. Wall motion analysis is normal. Systolic function is normal. EF measured 69%. Diastolic function is normal. 3. VALVES: Aortic and mitral valve exhibit minimal sclerotic changes, normal for patient's age. Normal valve excursion. Tricuspid valve structure and motion appear normal. Normal valve excursion. 4. DOPPLER: Mild mitral regurgitation. Trace tricuspid regurgitation. Systolic PA pressure estimated at 44 mmHg indicative of mildly elevated systolic PA pressure. Peak flow velocity at the aortic valve measured 1.94 m/ sec. Mean gradient only 7 mmHg with a normal aortic valve area of 2.59 cm2. No evidence of pericardial effusion, intracardiac masses, thrombi, vegetations or shunts. IMPRESSION 1. Mild LV enlargement. 2. Normal LV systolic and diastolic function parameters. 3. Mild mitral regurgitation. 4. Mildly elevated systolic PA pressure estimated at 44 mmHg. MTDD
== END 2017-11-11 18:20 | disposition home or self-care (01) ==
LOC: ED 15:36 → MED 15:36
PROVIDERS: ADMIT Hospitalist; ATTEND Hospitalist

== ENCOUNTER 2017-11-12 15:25 | Observation (INO) ==
[2017-11-12] MEDS ORDERED: METOCLOPRAMIDE 10mg/2ml INJECTION IVP ONE (15:59)
[2017-11-12] MEDS ORDERED: MECLIZINE 12.5 MG TABLET PO ONE (15:59)
[2017-11-12] MEDS ORDERED: ONDANSETRON 4 MG/2 ML INJECTION IVP ONE (15:59)
[2017-11-12] MEDS ORDERED: NS 1,000 ML IV ONE (15:59)
--- NOTE | 2017-11-12 16:27 | Emergency Department Report ---
General Adult HPI - General Chief complaint: Medical Emergency Stated complaint: unable to eat or drink/dizziness Time Seen by Provider: 11/12/17 15:37 - History of Present Illness HPI narrative: 71-year-old male presents with nausea vomiting and dizziness. He was discharged yesterday from inpatient admission here for dehydration, nausea, vomiting, dizziness. He was discharged last night with pain medication. His nausea became worse overnight and he became more weak as he was not eating or drinking. This morning he fell and struck his head. Uncertain if he had any loss of consciousness. - Related Data Home Medications Medication Instructions Recorded Confirmed Acetaminophen [Tylenol] 1,000 mg PO Q5H PRN 11/10/17 11/12/17 Aspirin [Adult Aspirin Regimen] 81 mg PO BID 11/10/17 11/12/17 Docusate Sodium [Colace] 100 mg PO BID 11/10/17 11/12/17 Doxazosin [Cardura] 4 mg PO HS 11/10/17 11/12/17 Finasteride [Proscar] 5 mg PO HS 11/10/17 11/12/17 Glucosamine/MSM/Chondroitin A 1 tab PO BID 11/10/17 11/12/17 [Glucosamine Chondroit MSM Tab] Omega3/Dha/Epa/Fish Oil/Vit D3 1 each PO HS 11/10/17 11/12/17 [Fish Oil-Vit D3 Softgel] Ondansetron HCl [Zofran] 8 mg PO Q12HR PRN 11/10/17 11/12/17 Previous Rx's Medication Instructions Recorded Omeprazole 20 mg PO ACB #30 tab 11/11/17 Fluticasone Nasal [place] [Flonase] 2 spray EA NOSTRIL BID bottle 11/15/17 Meclizine [Antivert] 25 mg PO Q6H PRN #20 tab 11/15/17 Allergies Allergy/AdvReac Type Severity Reaction Status Date / Time benzonatate Allergy Rash Verified 11/12/17 15:59 morphine AdvReac Unknown JERKING Verified 11/12/17 15:37 MOVEMENTS Review of Systems All systems: reviewed and negative except as stated PFSH Patient Stated Medical History Dysphagia Yes: OCCASIONALLY Other HEENT Yes: espophageal stricture Hx Benign Prostatic Yes Hyperplasia Surgical History: Esophageal dilatation. Inguinal hernia repair as a child - Social History Smoking status: Never smoker Substance use type: does not use Current residence: Apartment/Private Home Physical Exam - Limitations Limitations: no limitations - General General appearance: alert - Normal Exams: Head:: Normocephalic without trauma Chest/Respirations:: Clear all jasmine, with good airflow, and symmetry bilaterally Cardiovascular:: without murmur or gallop, Pulses 2+ all extremities, capillary refill, <2 seconds all extremities Abdomen:: Bowel sounds positive, soft, non-tender, non-distended, no hepatosplenomegaly, masses or bruits noted Neurological:: Patient is alert, and oriented, cranial nerves, motor/sensory/ cerebellar, exams w/o gross deficits, to observation Psychiatric:: Patient exhibits, appropriate attention, emotion and affect - Cardiovascular Cardiovascular exam: Present: normal rhythm, tachycardia - Expanded Upper Extremity Exam left Shoulder exam: Present: other - Expanded Lower Extremity Exam left Hip/Pelvis exam: Present: other Course Vital Signs Temperature 98.2 F 11/12/17 15:37 Pulse Rate 57 L 11/12/17 15:37 Respiratory Rate 16 11/12/17 15:37 Blood Pressure 161/72 H 11/12/17 15:37 Pulse Oximetry 96 11/12/17 15:37 Temperature 97.8 F 11/15/17 08:00 Pulse Rate 83 11/15/17 08:00 Respiratory Rate 16 11/15/17 08:00 Blood Pressure 162/78 H 11/15/17 08:00 Pulse Oximetry 97 11/15/17 08:00 Medical Decision Making - [facility] Narrative Medical decision making narrative: IV started peripheral line with normal saline 1 L bolus. Patient given Zofran [address] head returned negative. CBC CMP and UA drawn and negative. Imaging of hip is negative. Patient was unable to get up and walk. This is due to dizziness as well as weakness. I did speak with [facility] hospitalist, patient is admitted for hydration and reevaluation with oral meds prior to discharge. - Lab Data Result diagrams: 11/15/17 03:55 11/15/17 03:55 Lab Results 11/12/17 11/12/17 11/12/17 Range/Units 16:41 16:41 17:04 WBC 3.0 L (4.5-11.0) T/MM3 RBC 4.58 (4.50-5.90) M/MM3 Hgb 13.3 L (13.5-17.5) GM/DL Hct 38.3 L (41-53) % MCV 83.6 (80-100) UM3 MCH 29.0 (26-34) UUG MCHC 34.7 (31-37) GM/DL RDW Std Deviation 38.8 (36.9-50.2) FL Plt Count 130 (130-400) T/MM3 MPV 10.8 (9.4-12.4) UM3 Immature Gran % (Auto) 0.3 (0.0-0.5) % Neut % (Auto) 56.3 (33-66) % Lymph % (Auto) 30.5 (23-45) % [place] % (Auto) 11.9 H (0-9.0) % Eos % (Auto) 0.7 (0-4) % Baso % (Auto) 0.3 (0-2) % Neut # (Auto) 1.7 L (1.8-7.7) T/MM3 Lymph # (Auto) 0.9 L (1-4.8) T/MM3 [place] # (Auto) 0.4 (0-0.8) T/MM3 Eos # (Auto) 0.0 (0-0.5) T/MM3 Baso # (Auto) 0.0 (0-0.2) T/MM3 Abs Immat Gran (auto) 0.01 (0.00-0.03) T/MM3 Turbidity < 20 (0-20) Sodium 139 (134-144) MEQ/L Potassium 3.5 L (3.6-5) MEQ/L Chloride 101 (98-107) MEQ/L Carbon Dioxide 30 (22-30) MEQ/L Anion Gap 8 (5-15) MEQ/L BUN 8.0 L (9-20) MG/DL Creatinine 0.6 L (0.8-1.5) MG/DL GFR Calculation 132 BUN/Creatinine Ratio 13 (6-26) RATIO Glucose 106 (75-110) MG/DL Calculated Osmolality 266 (261-280) MOSM/KG Calcium 8.1 L (8.4-10.2) MG/DL Total Bilirubin 0.60 (0.20-1.30) MG/DL Icterus Index < 2 (0-7) AST 49 (17-59) U/L ALT 45 (21-72) U/L Alkaline Phosphatase 61 (38-126) U/L Total Protein 6.3 (6.3-8.2) G/DL Albumin 3.3 L (3.5-5.0) G/DL Globulin 3.0 (2.4-3.6) G/DL Albumin/Globulin Ratio 1.1 (1.1-2.2) RATIO Lipase 346 H (23-300) U/L Specimen Hemolysis < 15 (0-25) Ur Collection Type Urine, void-cc/notcc Urine Color Yellow (YELLOW) Urine Clarity Clear Urine pH 6.0 (5.0-8.0) Ur Specific [place] 1.020 (1.015-1.025) Urine Protein Trace A (NEGATIVE) Urine Glucose (UA) Negative (NEGATIVE) Urine Ketones 2+ A (NEGATIVE) Urine Occult Blood Negative (NEGATIVE) Urine Nitrate Negative (NEGATIVE) Urine Bilirubin Negative (NEGATIVE) Urine Urobilinogen >=8.0 A (NORMAL) EU/DL Ur Leukocyte Esterase Negative (NEGATIVE) Urinalysis Comment Microscopic not ind. Disposition Clinical Impression: N/V/vertigo [place] [facility] [place] Condition: Stable Time of Disposition: 12:32 - Seen By: physician
[2017-11-12] MEDS ORDERED: DEXAMETHASONE 4 MG/ML INJECTION IVP ONE (17:28)
[2017-11-12] MEDS ORDERED: ONDANSETRON 4 MG/2 ML INJECTION IVP PRN (19:24)
[2017-11-12] MEDS ORDERED: METOCLOPRAMIDE 10mg/2ml INJECTION IVP PRN (19:24)
[2017-11-12] MEDS ORDERED: PROMETHAZINE 25 MG INJECTION IVP PRN (19:24)
[2017-11-12] MEDS ORDERED: ACETAMINOPHEN 325 MG TABLET PO PRN (19:24)
[2017-11-12] MEDS ORDERED: MECLIZINE 25 MG TABLET PO PRN (19:28)
--- NOTE | 2017-11-12 19:42 | History & Physical Report ---
History of Present Illness Date: 11/13/17 Chief complaint: N/V, motion sickness, poor balance HPI: Mr Tobias is a pleasant 71-year-old gentleman who has been under the primary care of Dr. Leonard. Patient has been sick for approximately 10-12 days. He was evaluated on Thursday 11/[address] Leonard and found to have influenza B. He was not started on Tamiflu due to the length of his symptoms, however, was initiated on Zofran for his ongoing nausea and vomiting. On 11/10/17 his weakness has progressed to the point that he is unable to even stand up without severe dizziness, lightheadedness and continued nausea and vomiting. Patient has not been able to eat any solid foods for the past 8 days. At that time he was having generalized abdominal pain that radiates up into his chest. Reports his dyspnea is severe with even moving around in the bed. He is having to prop himself forward in a tripod-like position to become more comfortable. He has had a terrible cough with minimal sputum production. He's complained of postnasal drip. He presented to the emergency room on 11/10/17. WBC was found to be slightly low at 4.1, hemoglobin stable 14.1, platelet count low at 125. Chemistry panel was unremarkable. Rest x-ray was obtained. he was given a 1 liter of IV fluids as well as Zofran. He continuesd to be significantly weak and lightheaded. Due to the severity of his illness. The hospitalist services were contacted and accepted patient for outpatient observation for further evaluation and workup. During the hospitalization he was seen by Dr. Martinez who had seen him previously in 2008 with a negative stress test. The patient had been having chest pain but Dr. Martinez felt it was a low likelihood to be an ACS. His echo was done which showed relatively normal echocardiogram within normal EF and mild mitral insufficiency with the pulmonary artery pressure of 44 mmHg. The patient agreed to follow-up in 3 to 4 weeks after discharge for cardiac care. He has had esophageal stricture in the past and has had to have that dilated years ago. 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 He takes omeprazole now routinely to help prevent the strictures. The patient was feeling better by 11/11/17. He was ambulating in the hallway without dizziness. His nausea had resolved. He was eating light meals and requested to be discharged. It was felt he would be fairly stable to discharged to home. Once the patient got home however he started having dizziness again. The dizziness usually comes 1st and is followed by nausea. He states that the dizziness feels like a motion sickness. He does not feel as though he is going to pass out. Continued to not want to eat or drink anything as he felt this would make him nauseated. He's continued to have a cough. He was sent home yesterday with tassel on pearls but then broke out into a full body rash. That has resolved with cessation of the medication and Benadryl. He continues to have a bad cough is worse at night. He has scant clear sputum production currently. He's been weak because he hasn't really had a decent meal in many days. His dizziness seems to come and go. He also describes the inability to keep his balance if his eyes are closed or if these in a darkroom. This is new since the onset of this illness roughly 10 to 12 days ago. This time however he denies having any chest discomfort or pressure of any kind. He denies palpitations. He continues to be quite short of breath with much of any activity. Chest x-rays relatively unremarkable. Abdominal x-ray does show air throughout the colon and small bowel. The patient does report a normal bowel movement today. In the emergency room this time his white blood count was down a bit more at 3,000. Hemoglobin stable at 13.3 and platelets stable at 130. His chemistry is relatively unremarkable. His potassium is a slightly low at 3.5. Interestingly his lipase is elevated mildly at 346. He denies any pain with palpation of the epigastric area. To the failure to remain at home on his recent discharge the patient was readmitted for further care. Review of Systems All systems PM: 10-point ROS was reviewed, no additional remarkable complaints except Past Medical History Medical History Updates: Esophageal stricture. Gerd. BPH. history of viral hepatitis in 2003 Surgical History: Esophageal dilatation. Inguinal hernia repair as a child Family History Updates: Father at 94 with heart disease and diabetes. Mother 89 of congestive heart failure. - Social History Smoking status: Never smoker Substance use type: does not use Alcohol intake frequency: does not drink Household members: spouse Current occupational status: employed ([employer]) Current residence: Apartment/Private Home Social history: Patient works on a farm. He's a lifetime non-smoker. He walks unassisted. Medications Home Medications Medication Instructions Recorded Confirmed Type Acetaminophen [Tylenol] 1,000 mg PO Q5H PRN 11/10/17 11/12/17 History Aspirin [Adult Aspirin Regimen] 81 mg PO BID 11/10/17 11/12/17 History Docusate Sodium [Colace] 100 mg PO BID 11/10/17 11/12/17 History Doxazosin [Cardura] 4 mg PO HS 11/10/17 11/12/17 History Finasteride [Proscar] 5 mg PO HS 11/10/17 11/12/17 History Glucosamine/MSM/Chondroitin A 1 tab PO BID 11/10/17 11/12/17 History [Glucosamine Chondroit MSM Tab] Omega3/Dha/Epa/Fish Oil/Vit D3 1 each PO HS 11/10/17 11/12/17 History [Fish Oil-Vit D3 Softgel] Ondansetron HCl [Zofran] 8 mg PO Q12HR PRN 11/10/17 11/12/17 History Allergies Allergy/AdvReac Type Severity Reaction Status Date / Time benzonatate Allergy Rash Verified 11/12/17 15:59 morphine AdvReac Unknown JERKING Verified 11/12/17 15:37 MOVEMENTS Exam Vital Signs: Temperature 98.2 F 11/12/17 17:04 Pulse Rate 59 L 11/12/17 18:45 Respiratory Rate 22 11/12/17 18:45 Blood Pressure 157/76 H 11/12/17 18:30 Pulse Oximetry 95 11/12/17 18:45 Comments: Gen: alert and oriented. NAD Skin: warm and dry HEENT: NC/AT PERRL, EOMI, Sclera, lids and conjunctiva wnl. MMM. OP clear. TM clear bilaterally Neck: No JVD, Carotids 2+ without bruits Lungs: course, no rales, rhonchi or wheezes CV: regular. No murmur, rub or gallop Abd: soft. +BS. NT/ND MS: No edema. Good strength and ROM Neuro: No focal deficits Results - Labs CBC & Chem 7: 11/13/17 04:12 11/13/17 04:12 Assessment and Plan Assessment and Plan: Impression/Plan 1. Dizziness -meclizine -May need to try scopolamine patch if he does not improve. -await report on CT of the head 2. Nausea and vomiting that seems to be related to the dizziness -will provide antiemetics -IV fluids -keep NPO for now 3. Recent Influenza B - still having considerable cough and shortness of breath. 4. Mildly elevated lipase -will keep NPO -aggressive fluid hydration 5. Weakness- Acute -PT 6. Chest pain - denies at this admission 7. Dyspnea -Intermittent 8. Cough -with apparent allergy to tessalon pearls-diffuse rash 9. BPH -Cardura and Proscar 10. GERD -PPI 11. History of esophageal stricture 12. Prophylaxis -SCD's, ambulation and PPI - Physician Narrative Narrative: Date: 11/12/17 Time: 1929 Hospital Course Summary Disclaimer: The visit summary below is not to be considered part of the above Progress Note.
[2017-11-12] MEDS ORDERED: ACETAMINOPHEN 500 MG TABLET PO PRN (19:49)
[2017-11-12 20:28] VITALS: BMI 28.5
[2017-11-12] MEDS: NS 1,000 ML IV SCH (20:43)
[2017-11-12] MEDS: ASPIRIN *EC* 81 MG TAB - PT OWN PO SCH (21:22)
[2017-11-12] MEDS: DOCUSATE SODIUM 100 MG CAP - PT OWN PO SCH (21:23)
[2017-11-12] MEDS: DOXAZOSIN 4 MG PO SCH (21:23)
[2017-11-12] MEDS: FINASTERIDE 5 MG PO SCH (21:23)
[2017-11-13] MEDS: NS 1,000 ML IV SCH ×3 (04:00→17:38)
--- NOTE | 2017-11-13 09:01 | XRay Report ---
Indication: abd pain PROCEDURE: PA view of the chest with supine and upright AP views of the abdomen Encounter: Initial Comparison: November 10, 2017 FINDINGS: The lungs are clear. There is no abnormal airspace opacity, pleural effusion or pneumothorax identified. The heart size, pulmonary vasculature and mediastinum are within normal limits. There is no free air on the upright view. The bowel gas pattern is nonobstructive and nonspecific. Gas is seen in nondilated small and large bowel to the level of the rectum. Minimal stool is seen throughout the colon. The bony structures are grossly unremarkable. IMPRESSION: 1. No acute cardiopulmonary abnormality. 2. No evidence of acute obstruction or free air. .
--- NOTE | 2017-11-13 09:02 | CT Scan Report ---
Indication: dizziness PROCEDURE: CT head/brain wo con: Encounter: Initial Comparison: None Technique: Axial CT images through the head were performed without contrast. Iterative Reconstruction dose reducing technique was utilized. FINDINGS: Mild atrophy. The ventricles are of normal size, shape, and contour for the patient's age. There are scattered areas of low attenuation in the white matter which most likely represent changes from chronic microvascular ischemia. The brainstem, cerebellum, and cerebral hemispheres otherwise have a normal morphology and CT attenuation. There is no evidence of midline displacement. No hemorrhage, signs of acute territorial stroke, mass effect, mass lesions, or edema is evident. The visualized portions of the skull base, midface, and calvarium demonstrate no abnormality. Severe pansinusitis. The tympanic and mastoid cavities appear normal. IMPRESSION: No acute intracranial abnormality or hemorrhage. Pansinusitis. There is a preliminary report by virtual radi[facility]. .
[2017-11-13] MEDS: OMEPRAZOLE 20 MG CAP - PT OWN PO SCH ×2 (09:58→17:48)
[2017-11-13] MEDS: GLUCOSAMINE PO SCH ×3 (09:58→22:24)
[2017-11-13] MEDS: ASPIRIN *EC* 81 MG TAB - PT OWN PO SCH ×2 (09:58→22:22)
[2017-11-13] MEDS: DOCUSATE SODIUM 100 MG CAP - PT OWN PO SCH ×2 (09:58→22:23)
[2017-11-13] MEDS: CHONDROITIN PO SCH ×3 (09:58→22:24)
--- NOTE | 2017-11-13 14:30 | Progress Note ---
- Date 11/13/17 Subjective: Mr Tobias is a pleasant 71-year-old gentleman who has been under the primary care of Dr. Leonard. Patient has been sick for approximately 10-12 days. He was evaluated on Thursday 11/[address] Leonard and found to have influenza B. He was not started on Tamiflu due to the length of his symptoms, however, was initiated on Zofran for his ongoing nausea and vomiting. On 11/10/17 his weakness has progressed to the point that he is unable to even stand up without severe dizziness, lightheadedness and continued nausea and vomiting. Patient has not been able to eat any solid foods for the past 8 days. At that time he was having generalized abdominal pain that radiates up into his chest. Reports his dyspnea is severe with even moving around in the bed. He is having to prop himself forward in a tripod-like position to become more comfortable. He has had a terrible cough with minimal sputum production. He's complained of postnasal drip. He presented to the emergency room on 11/10/17. WBC was found to be slightly low at 4.1, hemoglobin stable 14.1, platelet count low at 125. Chemistry panel was unremarkable. Rest x-ray was obtained. he was given a 1 liter of IV fluids as well as Zofran. He continuesd to be significantly weak and lightheaded. Due to the severity of his illness. The hospitalist services were contacted and accepted patient for outpatient observation for further evaluation and workup. During the hospitalization he was seen by Dr. Martinez who had seen him previously in 2008 with a negative stress test. The patient had been having chest pain but Dr. Martinez felt it was a low likelihood to be an ACS. His echo was done which showed relatively normal echocardiogram within normal EF and mild mitral insufficiency with the pulmonary artery pressure of 44 mmHg. The patient agreed to follow-up in 3 to 4 weeks after discharge for cardiac care. He has had esophageal stricture in the past and has had to have that dilated years ago. 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 He takes omeprazole now routinely to help prevent the strictures. The patient was feeling better by 11/11/17. He was ambulating in the hallway without dizziness. His nausea had resolved. He was eating light meals and requested to be discharged. It was felt he would be fairly stable to discharged to home. Once the patient got home however he started having dizziness again. The dizziness usually comes 1st and is followed by nausea. He states that the dizziness feels like a motion sickness. He does not feel as though he is going to pass out. Continued to not want to eat or drink anything as he felt this would make him nauseated. He's continued to have a cough. He was sent home yesterday with tassel on pearls but then broke out into a full body rash. That has resolved with cessation of the medication and Benadryl. He continues to have a bad cough is worse at night. He has scant clear sputum production currently. He's been weak because he hasn't really had a decent meal in many days. His dizziness seems to come and go. He also describes the inability to keep his balance if his eyes are closed or if these in a darkroom. This is new since the onset of this illness roughly 10 to 12 days ago. This time however he denies having any chest discomfort or pressure of any kind. He denies palpitations. He continues to be quite short of breath with much of any activity. Chest x-rays relatively unremarkable. Abdominal x-ray does show air throughout the colon and small bowel. The patient does report a normal bowel movement today. In the emergency room this time his white blood count was down a bit more at 3,000. Hemoglobin stable at 13.3 and platelets stable at 130. His chemistry is relatively unremarkable. His potassium is a slightly low at 3.5. Interestingly his lipase is elevated mildly at 346. He denies any pain with palpation of the epigastric area. To the failure to remain at home on his recent discharge the patient was readmitted for further care. This morning the patient is feeling better. He does not have that motion sickness feeling but states he really hasn't been out of bed much. He still has a cough but that is worse when he is supine. He denies feeling short of breath. Denies nausea or vomiting but has not had anything to eat. He would like to try eating something. I have asked him to start ambulating as well. He denies chest pain or palpitations. He denies any abdominal pain. His lipase is down to within normal limits this morning. Objective Vital signs: Temperature 97.1 F 11/13/17 07:41 Pulse Rate 56 L 11/13/17 07:41 Respiratory Rate 16 11/13/17 07:41 Blood Pressure 139/71 11/13/17 07:41 Pulse Oximetry 97 11/13/17 07:41 Height/Weight/BMI: Height 1.85 m Weight 98.3 kg Body Mass Index 28.5 Comments: Gen: alert and oriented. NAD Skin: warm and dry HEENT: NC/AT PERRL, EOMI, Sclera, lids and conjunctiva wnl. MMM. OP clear. TM clear bilaterally Neck: No JVD, Carotids 2+ without bruits Lungs: course, no rales, rhonchi or wheezes CV: regular. No murmur, rub or gallop Abd: soft. +BS. NT/ND MS: No edema. Good strength and ROM Neuro: No focal deficits Results - Labs CBC & Chem 7: 11/13/17 04:12 11/13/17 04:12 Assessment and Plan Assessment and Plan: Impression/Plan 1. Dizziness -meclizine -May consider a scopolamine patch if he does not improve -CT of the head shows no acute intracranial abnormality or hemorrhage. Pansinusitis. 2. Nausea and vomiting that seems to be related to the dizziness -will provide antiemetics -IV fluids -advance diet to full liquids today 3. Recent Influenza B - still having considerable cough and shortness of breath. 4. Mildly elevated lipase -Normalized today -Advance diet to full liquids -aggressive fluid hydration 5. Sinusitis -Start guaifenesin and flonase 6. Mild leukopenia/lymphopenia -?etiology -Repeat in am 7. Weakness- Acute -PT 8. Chest pain - denies at this admission 9. Dyspnea -Intermittent 10. Cough -with apparent allergy to tessalon pearls-causing a rash 11. BPH -Cardura and Proscar 12. GERD -PPI 13. History of esophageal stricture and dilatation 14. Prophylaxis -SCD's, ambulation and PPI - Physician Narrative Narrative: Date: 11/13/17 Time: 1426 Hospital Course Summary Disclaimer: The visit summary below is not to be considered part of the above Progress Note.
[2017-11-13] MEDS ORDERED: GUAIFENESIN/D-METHORPHAN 600mg/30mg TABLET PO PRN (14:36)
[2017-11-13] MEDS: FLUTICASONE NASAL SPRAY 50mcg EA NOSTRIL SCH (17:48)
[2017-11-13] MEDS: DOXAZOSIN 4 MG PO SCH (22:23)
[2017-11-13] MEDS: FINASTERIDE 5 MG PO SCH (22:23)
[2017-11-14] MEDS ORDERED: NS 1,000 ML IV SCH (00:45)
[2017-11-14] MEDS: OMEPRAZOLE 20 MG CAP - PT OWN PO SCH ×2 (05:46→17:12)
[2017-11-14] MEDS: ASPIRIN *EC* 81 MG TAB - PT OWN PO SCH ×2 (09:02→21:49)
[2017-11-14] MEDS: GLUCOSAMINE PO SCH ×2 (09:03→21:50)
[2017-11-14] MEDS: FLUTICASONE NASAL SPRAY 50mcg EA NOSTRIL SCH ×3 (09:03→21:51)
[2017-11-14] MEDS: DOCUSATE SODIUM 100 MG CAP - PT OWN PO SCH ×2 (09:03→21:49)
[2017-11-14] MEDS: CHONDROITIN PO SCH ×2 (09:03→21:50)
[2017-11-14] MEDS: NS 1,000 ML IV SCH (09:24)
--- NOTE | 2017-11-14 10:03 | Progress Note ---
- Date 11/14/17 Subjective: CG feels better than he did in the middle of the night. He woke up and was short of breath and coughed each time he laid flat on his back. At that time IVF were dc'd. He denied any chest pain or nausea at that time. He has some leg swelling which is unusual and his name band feels tight on his wrist. His thinks his face looks ardon. He actually feels pretty good this morning. He wasn't dizzy or spinning when he got up to use the bathroom earlier. His Matilda states that he's been hard of hearing ever since getting sick a few days ago. He's had some sinus drainage and a sore, dry throat. No abdominal pain and he's ready to try to eat something for breakfast. Objective Vital signs: Temperature 96.7 F L 11/14/17 06:43 Pulse Rate 49 L 11/14/17 09:50 Respiratory Rate 16 11/14/17 06:43 Blood Pressure 155/75 H 11/14/17 06:43 Pulse Oximetry 95 11/14/17 06:43 Height/Weight/BMI: Height 1.85 m Weight 99.5 kg Body Mass Index 28.5 - Constitutional Present: no acute distress, well nourished, well developed - Routine HEENT Exam Head: Present: normocephalic Eye: Absent: conjunctival icterus, scleral injection ENT: Present: oropharynx clear, TM's clear bilaterally (slight bulging of membranes) Comments: small aphthous ulcer to the roof of his mouth. His posterior pharynx was erythemic. He had mild cervical lymphadenopathy. - Routine Respiratory Exam Present: CTA bilaterally Comments: lungs initially sounded coarse but after coughing they cleared - Routine Cardiovascular Exam Present: RRR, S1, S2 - Routine Abdominal Exam Present: soft, normoactive bowel sounds, non distended, non tender - Routine Extremities Exam Present: edema (1+ BLE) - Routine Musculoskeletal Exam Musculoskeletal: Present: moving extremities well - Routine Skin Exam Present: intact, dry, warm - Routine Neurological Exam Present: alert, oriented X3 - Routine Lymphatic Exam Lymphatic: Present: adenopathy - Routine Psychiatric Exam Present: normal affect, normal thought process, cooperative Results - Labs CBC & Chem 7: 11/14/17 04:19 11/13/17 04:12 Assessment and Plan Assessment and Plan: Impression Dizziness with n/v Recent influenza B elevated lipase - resolved sinusitis mild leukopenia/lymphopenia weakness BPH GERD History of esophageal stricture and dilatation Plan Sx improving. Advance diet to regular and assess response. Cough, SOA - IVF dc'd. Sinusitis and hearing reduction - flonase wbc improved to 3 - f/u outpt hopefully dc home later today 11/14/2017-7 PM -I reviewed this chart, the patient history, and the [employer]SI[employer] CREWMEMBER's/PA' s documented findings as above. We discussed and formulated the assessment and plan as above with the additions below.-Dr. Golden The patient is not feeling as well today as he did yesterday. He had shortness of breath and cough last night. He also has very little appetite. He is able to drink some fluids but has not eaten well today. He has been having bowel movements. His abdomen feels a little bloated. He felt edematous earlier today that that seems better. His cough and sinus congestion are better with Flonase. He was complaining of diaphoresis, shortness of air and fullness in his abdomen earlier today. Troponins 2 are negative. On exam he is alert and in no acute distress. Chest is clear to auscultation. Cardiovascular reveals bradycardia with heart rate in the low 50s. He has had an occasional heart rate recorded down to 49. He states his heart rate is often in the 50s. Abdomen is soft, nontender with positive bowel sounds. Extremities are free of edema. With the patient's poor appetite today and symptoms of dyspnea last night, his is quite worried about dismissal to home this evening. We'll watch closely overnight on telemetry. Watch off of IV fluids. Encourage by mouth intake. CBC and renal panel tomorrow. Hopefully dismiss to home tomorrow if feeling better. GI Prophylaxis: Protonix - Physician Narrative Physician: Linda Golden MD Narrative: Date: 11/14/17 Time: 0959 Hospital Course Summary Disclaimer: The visit summary below is not to be considered part of the above Progress Note. Hospital Course: 11/12-11/13 1. Dizziness -meclizine -May consider a scopolamine patch if he does not improve -CT of the head shows no acute intracranial abnormality or hemorrhage. Pansinusitis. 2. Nausea and vomiting that seems to be related to the dizziness -will provide antiemetics -IV fluids -advance diet to full liquids today 3. Recent Influenza B - still having considerable cough and shortness of breath. 4. Mildly elevated lipase -Normalized today -Advance diet to full liquids -aggressive fluid hydration 5. Sinusitis -Start guaifenesin and flonase 6. Mild leukopenia/lymphopenia -?etiology -Repeat in am 7. Weakness- Acute -PT 8. Chest pain - denies at this admission 9. Dyspnea -Intermittent 10. Cough -with apparent allergy to tessalon pearls-causing a rash 11. BPH -Cardura and Proscar 12. GERD -PPI 13. History of esophageal stricture and dilatation 14. Prophylaxis -SCD's, ambulation and PPI Addendum entered and electronically signed by Lilibeth Kwong APRN 11/14/17 12: 19: 1215: CG ate breakfast and denies nausea. However, he feels very full and has to stop to catch his breath. Just a little while ago he became short of breath and sweaty -- his then told me that he became very diaphoretic when he was short of breath early this am. Will obtain CXR, EKG, and troponin.
--- NOTE | 2017-11-14 13:20 | XRay Report ---
LOCATION OF DICTATION: [facility] EXAM: XR chest 2V HISTORY: SOA COMPARISON: November 10, 2017 FINDINGS: The heart size is normal. The mediastinal configuration is unremarkable. There is bibasal atelectasis. There are no consolidating opacities or pleural effusions. There is no evidence for a pneumothorax. The osseous structures are within normal limits. IMPRESSION: Mild persistent bibasilar atelectasis or scarring without evidence for pneumonia. Heart size is normal. .
[2017-11-14] MEDS: SALINE 0.65% NASAL SPRAY 44 ML BOTTLE EA NOSTRIL PRN ×2 (14:01→21:49)
[2017-11-14] MEDS: SALINE FLUSH 10ml SYRINGE IVF PRN (17:13)
[2017-11-14] MEDS: DOXAZOSIN 4 MG PO SCH (21:50)
[2017-11-14] MEDS: FINASTERIDE 5 MG PO SCH (21:50)
[2017-11-15 00:14] VITALS: RESP 16
[2017-11-15] MEDS: SALINE FLUSH 10ml SYRINGE IVF PRN (05:43)
[2017-11-15] MEDS: OMEPRAZOLE 20 MG CAP - PT OWN PO SCH (05:44)
[2017-11-15] MEDS: FLUTICASONE NASAL SPRAY 50mcg EA NOSTRIL SCH (08:31)
[2017-11-15] MEDS: ASPIRIN *EC* 81 MG TAB - PT OWN PO SCH (08:34)
[2017-11-15] MEDS: DOCUSATE SODIUM 100 MG CAP - PT OWN PO SCH (08:34)
[2017-11-15] MEDS: GLUCOSAMINE PO SCH (08:35)
[2017-11-15] MEDS: CHONDROITIN PO SCH (08:35)
[2017-11-15 09:16] VITALS: BP 162/78; PULSE 83; TEMP 97.8; O2SAT 97
--- NOTE | 2017-11-15 14:40 | Discharge Summary ---
Discharge Information Date of admission: 11/12/17 18:16 Anticipated date of discharge: 11/15/17 Attending Physician: Linda Golden MD Primary care physician: Preet Leonard MD Consults: None Dizziness with n/v Recent influenza B elevated lipase - resolved sinusitis mild leukopenia/lymphopenia weakness BPH GERD History of esophageal stricture and dilatation - Procedures Procedures: None - Laboratory Labs: 11/15/17 03:55 11/15/17 03:55 - Microbiology Microbiology 11/12/17 16:41 Peripheral/Iv Start Blood Culture - Preliminary No Growth After 2 Days 11/12/17 16:47 Peripheral/Iv Start Blood Culture - Preliminary No Growth After 2 Days 11/12/17 17:04 Urine, Voided (Cc/notcc) Urine Culture - Final No Growth After 2 Days - Radiology Radiology: 11/12/17-CT head-IMPRESSION: No acute intracranial abnormality or hemorrhage. Pansinusitis. 11/12/17-abdominal x-ray- IMPRESSION: 1. No acute cardiopulmonary abnormality. 2. No evidence of acute obstruction or free air. 11/14/17-chest x-ray- IMPRESSION: Mild persistent bibasilar atelectasis or scarring without evidence for pneumonia. Heart size is normal. - Pathology None History of Present Illness HPI: Mr Tobias is a pleasant 71-year-old gentleman who has been under the primary care of Dr. Leonard. Patient has been sick for approximately 10-12 days. He was evaluated on Thursday 11/[address] Leonard and found to have influenza B. He was not started on Tamiflu due to the length of his symptoms, however, was initiated on Zofran for his ongoing nausea and vomiting. On 11/10/17 his weakness has progressed to the point that he is unable to even stand up without severe dizziness, lightheadedness and continued nausea and vomiting. Patient has not been able to eat any solid foods for the past 8 days. At that time he was having generalized abdominal pain that radiates up into his chest. Reports his dyspnea is severe with even moving around in the bed. He is having to prop himself forward in a tripod-like position to become more comfortable. He has had a terrible cough with minimal sputum production. He's complained of postnasal drip. He presented to the emergency room on 11/10/17. WBC was found to be slightly low at 4.1, hemoglobin stable 14.1, platelet count low at 125. Chemistry panel was unremarkable. Rest x-ray was obtained. he was given a 1 liter of IV fluids as well as Zofran. He continuesd to be significantly weak and lightheaded. Due to the severity of his illness. The hospitalist services were contacted and accepted patient for outpatient observation for further evaluation and workup. During the hospitalization he was seen by Dr. Martinez who had seen him previously in 2008 with a negative stress test. The patient had been having chest pain but Dr. Martinez felt it was a low likelihood to be an ACS. His echo was done which showed relatively normal echocardiogram within normal EF and mild mitral insufficiency with the pulmonary artery pressure of 44 mmHg. The patient agreed to follow-up in 3 to 4 weeks after discharge for cardiac care. He has had esophageal stricture in the past and has had to have that dilated years ago. 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 He takes omeprazole now routinely to help prevent the strictures. The patient was feeling better by 11/11/17. He was ambulating in the hallway without dizziness. His nausea had resolved. He was eating light meals and requested to be discharged. It was felt he would be fairly stable to discharged to home. Once the patient got home however he started having dizziness again. The dizziness usually comes 1st and is followed by nausea. He states that the dizziness feels like a motion sickness. He does not feel as though he is going to pass out. Continued to not want to eat or drink anything as he felt this would make him nauseated. He's continued to have a cough. He was sent home yesterday with tassel on pearls but then broke out into a full body rash. That has resolved with cessation of the medication and Benadryl. He continues to have a bad cough is worse at night. He has scant clear sputum production currently. He's been weak because he hasn't really had a decent meal in many days. His dizziness seems to come and go. He also describes the inability to keep his balance if his eyes are closed or if these in a darkroom. This is new since the onset of this illness roughly 10 to 12 days ago. This time however he denies having any chest discomfort or pressure of any kind. He denies palpitations. He continues to be quite short of breath with much of any activity. Chest x-rays relatively unremarkable. Abdominal x-ray does show air throughout the colon and small bowel. The patient does report a normal bowel movement today. In the emergency room this time his white blood count was down a bit more at 3,000. Hemoglobin stable at 13.3 and platelets stable at 130. His chemistry is relatively unremarkable. His potassium is a slightly low at 3.5. Interestingly his lipase is elevated mildly at 346. He denies any pain with palpation of the epigastric area. To the failure to remain at home on his recent discharge the patient was readmitted for further care. Objective Vital signs: Temperature 97.8 F 11/15/17 08:00 Pulse Rate 83 11/15/17 08:00 Respiratory Rate 16 11/15/17 08:00 Blood Pressure 162/78 H 11/15/17 08:00 Pulse Oximetry 97 11/15/17 08:00 Height/Weight/BMI: Height 1.85 m Weight 95.8 kg Body Mass Index 28.5 - Constitutional Present: no acute distress, well nourished, well developed - Routine HEENT Exam Eye: Present: EOMI ENT: Present: mucous membranes moist, dentition normal - Routine Respiratory Exam Present: CTA bilaterally. Absent: wheezes - Routine Cardiovascular Exam Present: RRR, S1, S2. Absent: murmur - Routine Abdominal Exam Present: soft, normoactive bowel sounds, non distended. Absent: tenderness - Routine Extremities Exam Present: normal capillary refill - Routine Skin Exam Present: intact, dry, warm - Routine Neurological Exam Present: alert, oriented X3, CN II-XII intact, moving all extremities - Routine Lymphatic Exam Lymphatic: Absent: adenopathy - Routine Psychiatric Exam Present: normal affect, cooperative Hospital Course This is a general summary of the patient's hospital course. For more details refer to the complete medical record. Hospital course: 11/12-11/13 1. Dizziness -meclizine -May consider a scopolamine patch if he does not improve -CT of the head shows no acute intracranial abnormality or hemorrhage. Pansinusitis. 2. Nausea and vomiting that seems to be related to the dizziness -will provide antiemetics -IV fluids -advance diet to full liquids today 3. Recent Influenza B - still having considerable cough and shortness of breath. 4. Mildly elevated lipase -Normalized today -Advance diet to full liquids -aggressive fluid hydration 5. Sinusitis -Start guaifenesin and flonase 6. Mild leukopenia/lymphopenia -?etiology -Repeat in am 7. Weakness- Acute -PT 8. Chest pain - denies at this admission 9. Dyspnea -Intermittent 10. Cough -with apparent allergy to tessalon pearls-causing a rash 11. BPH -Cardura and Proscar 12. GERD -PPI 13. History of esophageal stricture and dilatation 14. Prophylaxis -SCD's, ambulation and PPI 11/14 Sx improving. Advance diet to regular and assess response. Cough, SOA - IVF dc'd. Sinusitis and hearing reduction - flonase wbc improved to 3 - f/u outpt hopefully dc home later today 11/14 The patient is not feeling as well today as he did yesterday. He had shortness of breath and cough last night. He also has very little appetite. He is able to drink some fluids but has not eaten well today. He has been having bowel movements. His abdomen feels a little bloated. He felt edematous earlier today that that seems better. His cough and sinus congestion are better with Flonase. He was complaining of diaphoresis, shortness of air and fullness in his abdomen earlier today. Troponins 2 are negative. On exam he is alert and in no acute distress. Chest is clear to auscultation. Cardiovascular reveals bradycardia with heart rate in the low 50s. He has had an occasional heart rate recorded down to 49. He states his heart rate is often in the 50s. Abdomen is soft, nontender with positive bowel sounds. Extremities are free of edema. With the patient's poor appetite today and symptoms of dyspnea last night, his is quite worried about dismissal to home this evening. We'll watch closely overnight on telemetry. Watch off of IV fluids. Encourage by mouth intake. CBC and renal panel tomorrow. Hopefully dismiss to home tomorrow if feeling better. 11/15/17-discharge Clearance is seen and examined prior to discharge. He states that he is feeling great without any symptoms including chest pain, shortness of breath, dizziness or nausea. Continue with routine home medications. He may continue to use Flonase nasal spray twice a day, May also use meclizine as needed for dizziness. Started to follow-up with Dr. Leonard in 1 week as well as Dr. Martinez as instructed. Discharge with in stable condition Time spent with patient: discharge greater than 30 minutes Resuscitation Status: Full Code Discharge Plan - Discharge Disposition Discharge Date: 11/15/17 Disposition: 01 Discharged Home, Self-Care *Condition: Stable Reason For Visit (Visit label in EMR): n/v/vertigo - Discharge Medications *Discharge Medications: New Fluticasone Nasal [place] [Flonase] 2 spray EA NOSTRIL BID bottle Meclizine [Antivert] 25 mg PO Q6H PRN #20 tab PRN Reason: Dizziness Continue Omega3/Dha/Epa/Fish Oil/Vit D3 [Fish Oil-Vit D3 Softgel] 1 each PO HS Aspirin [Adult Aspirin Regimen] 81 mg PO BID Glucosamine/MSM/Chondroitin A [Glucosamine Chondroit MSM Tab] 1 tab PO BID Docusate Sodium [Colace] 100 mg PO BID Acetaminophen [Tylenol] 1,000 mg PO Q5H PRN PRN Reason: Pain /Fever Finasteride [Proscar] 5 mg PO HS Doxazosin [Cardura] 4 mg PO HS Ondansetron HCl [Zofran] 8 mg PO Q12HR PRN PRN Reason: Nausea &/Or Vomiting Omeprazole 20 mg PO ACB #30 tab - Discharge Packet/Instructions *Diet: Regular *Activity: Activity as tolerated *Pain Management/Treatment: Tylenol as needed for pain *Wound Care: None Additional Instructions: May continue to use meclizine every 6 hours as needed for dizziness *Expected Signs/Symptoms: Continued improvement in strength *Notify Physician if: Fevers, chills, worsening dizziness,chest pain, shortness of breath or other concerning symptoms *During Business Hours Contact: Dr. Leonard *After Business Hours Contact: Landy oncall Physician *Pending Lab/Results: No Pending Lab - Referrals/Follow Up *Referrals/Follow Up: Preet Leonard MD [Family Provider] - (Follow up in 1 week APPOITMENT ON 11/22 AT 4:30. ) - Patient Handouts Patient Handouts: Acute Nausea and Vomiting (GEN) - Dismissal Complete Discharge Instructions are:: Complete Physician Narrative - Narrative Physician: Linda Golden MD Attestation Narrative: Date: 11/15/17 Time: 7:10 PM-Dr. Golden I reviewed this chart, the patient history, and the MARKET DEVELOPER's/PA's documented findings as above. We discussed and formulated the assessment and plan as above with the additions below. I saw the patient earlier today prior to discharge. He stated that he slept well last night and did not have any dyspnea or diaphoresis. His energy is much better. He is drinking well. His appetite is not great that he is able to eat. He denies any shortness of breath. He denies any lightheadedness. He feels strong enough to go home today. His is here and is in agreement with discharge. On exam he is alert and oriented and in no acute distress. Chest is clear to auscultation. Cardiovascular reveals a regular rate and rhythm. Abdomen is soft and nontender. Extremities are free of edema. He is encouraged to make sure he is drinking enough fluids. Advance diet as tolerated. Follow-up with his primary care provider.
== END 2017-11-15 12:56 | disposition home or self-care (01) ==
LOC: ED 15:25 → MED 15:25 → SUATTDRO 18:16 → MED 19:00
PROVIDERS: ADMIT Internal Medicine Cardiovascular Disease; ATTEND Internal Medicine